=== PATIENT | male | born 1975 | race Caucasian/White ===

== ENCOUNTER 2018-08-03 12:33 | Inpatient (IN) | payer MEDICARE ==
[~2018-08-03] VITALS: Ht 180.3 cm; Wt 102.4 kg
[2018-08-03] MEDS ORDERED: CLON0.2T PO (13:07)
[2018-08-03] MEDS ORDERED: GLIP5TAB10 PO (13:07)
[2018-08-03] MEDS ORDERED: METO25TA35 PO (13:07)
[2018-08-03] MEDS ORDERED: MYCO250C4 PO (13:07)
[2018-08-03] MEDS ORDERED: TACR1CAP4 PO (13:07)
[2018-08-03] MEDS ORDERED: hydrALAzine 20 MG/ML, 1ML ONE (13:18)
[2018-08-03 13:40] LABS: BASOPHILS # (AUTO) 0.02 x10^3/uL (0-0.1); BASOPHILS % (AUTO) 0 % (0-1); EOSINOPHILS # (AUTO) 0.06 x10^3/uL (0-0.4); EOSINOPHILS % (AUTO) 1 % (1-7); LYMPHOCYTES # (AUTO) 1.05 x10^3/uL (1-3.4); LYMPHOCYTES % (AUTO) 9 % (22-44); MD NO; MEAN CORPUSCULAR HEMOGLOBIN 29.3 pg (27.5-34.5); MEAN CORPUSCULAR HGB CONC 33.2 g/dL (33.2-36.2); MEAN CORPUSCULAR VOLUME 88.3 fL (81-97); MEAN PLATELET VOLUME 8.9 fL (7.4-10.4); MONOCYTES # (AUTO) 0.44 x10^3/uL (0.2-0.8); MONOCYTES % (AUTO) 4 % (2-9); NEUTROPHILS # (AUTO) 9.93 x10^3/uL (1.8-6.8); NEUTROPHILS % (AUTO) 86 % (42-75); PLATELET COUNT 232 x10^3/uL (130-400); RED BLOOD COUNT 4.48 x10^6/uL (4.38-5.82); RED CELL DISTRIBUTION WIDTH 13.8 % (9.4-14.8)
[2018-08-03 13:44] LABS: ALBUMIN 2.4 g/dL (3.4-5.0); ANION GAP 19 mmol/L (5-15); CALCIUM 7.8 mg/dL (8.5-10.1); CHLORIDE 104 mmol/L (98-107)
[2018-08-03 13:47] LABS: TROPONIN I 0.028 ng/mL (0.000-0.045)
[2018-08-03] MEDS ORDERED: SODIUM CHLORIDE FLUSH 10ML SYR IVF ONE (14:00)
[2018-08-03] MEDS ORDERED: hydrALAzine 20 MG/ML, 1ML IV ONE ×2 (14:00→14:30)
[2018-08-03] MEDS ORDERED: LORazepam 2 MG/ML, 1ML ONE ×2 (14:09→14:35)
[2018-08-03] MEDS ORDERED: LORazepam 2 MG/ML, 1ML IVPush ONE ×2 (14:30→15:00)
[2018-08-03] MEDS ORDERED: PLEASE ENTER ALLERGIES MC SCH (15:00)
[2018-08-03] MEDS ORDERED: LABETALOL 5MG/ML, 20ML IVPush ONE (15:30)
[2018-08-03] MEDS ORDERED: FUROSEMIDE 40 MG/4 ML ONE (15:47)
[2018-08-03] MEDS ORDERED: LABETALOL 5MG/ML, 20ML ONE (15:47)
[2018-08-03] MEDS ORDERED: FUROSEMIDE 100 MG/10 ML IV ONE (16:00)
[2018-08-03] MEDS: TACROLIMUS 1 MG CAPSULE PO SCH ×2 (16:00→16:30)
[2018-08-03] MEDS ORDERED: LIDOCAINE-MPF 2%, 2ML ONE ×2 (16:08)
[2018-08-03] MEDS ORDERED: NITROGLYCERIN OINT 2%, 1GM TP ONE ×2 (16:18→16:30)
[2018-08-03] MEDS ORDERED: BISACODYL 10 MG SUPP PR PRN (16:30)
[2018-08-03] MEDS ORDERED: POLYETHYLENE GLYCOL 17 GM PACKET PO PRN (16:30)
[2018-08-03] MEDS ORDERED: MICROFIBRILLAR COLLAGEN 1 GM TP ONE (16:56)
[2018-08-03] MEDS ORDERED: ONDANSETRON ODT 4 MG ONE (17:36)
[2018-08-03] MEDS: ONDANSETRON ODT 4 MG PO PRN (17:54)
[2018-08-03 19:42] VITALS: BP 140/84
[2018-08-03] MEDS: OXYcodone IR 5MG TABLET PO PRN (21:38)
[2018-08-03] MEDS: HEPARIN 5,000 UNITS/ML, 1ML SQ SCH (21:39)
[2018-08-04] MEDS: ONDANSETRON ODT 4 MG PO PRN ×3 (02:17→21:25)
[2018-08-04] MEDS: TACROLIMUS 1 MG CAPSULE PO SCH ×3 (04:00→16:29)
[2018-08-04] MEDS: OXYcodone IR 5MG TABLET PO PRN ×3 (04:14→20:19)
[2018-08-04] MEDS: HEPARIN 5,000 UNITS/ML, 1ML SQ SCH ×3 (04:14→20:20)
[2018-08-04 04:53] VITALS: BP 149/99
[2018-08-04 05:15] LABS: BASOPHILS # (AUTO) 0.01 x10^3/uL (0-0.1); BASOPHILS % (AUTO) 0 % (0-1); EOSINOPHILS % (AUTO) 0 % (1-7); LYMPHOCYTES # (AUTO) 0.42 x10^3/uL (1-3.4); LYMPHOCYTES % (AUTO) 6 % (22-44); MD NO; MEAN CORPUSCULAR HEMOGLOBIN 30.2 pg (27.5-34.5); MEAN CORPUSCULAR HGB CONC 33.9 g/dL (33.2-36.2); MEAN CORPUSCULAR VOLUME 89.2 fL (81-97); MEAN PLATELET VOLUME 8.7 fL (7.4-10.4); MONOCYTES # (AUTO) 0.04 x10^3/uL (0.2-0.8); MONOCYTES % (AUTO) 1 % (2-9); NEUTROPHILS % (AUTO) 93 % (42-75); PLATELET COUNT 210 x10^3/uL (130-400); RED BLOOD COUNT 4.27 x10^6/uL (4.38-5.82); RED CELL DISTRIBUTION WIDTH 13.3 % (9.4-14.8)
[2018-08-04 05:16] LABS: CHLORIDE 97 mmol/L (98-107)
[2018-08-04 05:40] LABS: ALANINE AMINOTRANSFERASE 20 U/L (12-78); ALBUMIN 2.5 g/dL (3.4-5.0); ALKALINE PHOSPHATASE 78 U/L (45-117); ANION GAP 20 mmol/L (5-15); BILIRUBIN,TOTAL 0.7 mg/dL (0.2-1.0); CALCIUM 8.3 mg/dL (8.5-10.1); TOTAL PROTEIN 6.9 g/dL (6.4-8.2)
[2018-08-04] MEDS: hydrALAzine 20 MG/ML, 1ML IVPush PRN ×2 (07:37→20:20)
[2018-08-04] MEDS: METOPROLOL TARTRATE 25 MG TABLET PO SCH (08:39)
[2018-08-04] MEDS: SENNA/DOCUSATE TABLET PO SCH (09:11)
[2018-08-04] MEDS: LABETALOL 5MG/ML, 20ML IVPush PRN ×5 (10:26→23:26)
[2018-08-04] MEDS ORDERED: PROMETHAZINE 25 MG/ML, 1ML ONE (12:29)
[2018-08-04] MEDS: PROMETHAZINE 25 MG/ML, 1ML IM PRN (12:31)
[2018-08-04] MEDS: LORazepam 1MG TABLET PO PRN (22:31)
[2018-08-05] VITALS (8 sets, daily range): BP systolic 144–193; BP diastolic 80–115
[2018-08-05] MEDS: hydrALAzine 20 MG/ML, 1ML IVPush PRN ×3 (00:46→21:21)
[2018-08-05] MEDS: OXYcodone IR 5MG TABLET PO PRN ×2 (00:59→17:49)
[2018-08-05] MEDS ORDERED: ALUMINUM/MAG/SIMETHICONE 30 ML UDC PO ONE (01:00)
[2018-08-05] MEDS: LABETALOL 5MG/ML, 20ML IVPush PRN ×2 (02:03→18:55)
[2018-08-05] MEDS: TACROLIMUS 1 MG CAPSULE PO SCH ×2 (04:30→20:00)
[2018-08-05] MEDS: LORazepam 1MG TABLET PO PRN ×2 (05:02→20:01)
[2018-08-05] MEDS: HEPARIN 5,000 UNITS/ML, 1ML SQ SCH ×4 (05:02→23:36)
[2018-08-05 05:39] LABS: ANION GAP 14 mmol/L (5-15); CALCIUM 7.7 mg/dL (8.5-10.1); CHLORIDE 89 mmol/L (98-107)
[2018-08-05] MEDS: INSULIN LISPRO 100 UNITS/ML, PEN SQ-INSULIN SCH ×4 (08:47→20:03)
[2018-08-05] MEDS: METOPROLOL TARTRATE 25 MG TABLET PO SCH (08:48)
[2018-08-05] MEDS: INSULIN GLARGINE 100 UNITS/ML, PEN SQ-INSULIN SCH ×2 (08:48→20:03)
[2018-08-05] MEDS: OMEPRAZOLE 20 MG CAPSULE.DR PO SCH (08:48)
[2018-08-05] MEDS: SENNA/DOCUSATE TABLET PO SCH (08:48)
[2018-08-05] MEDS: PROMETHAZINE 25 MG/ML, 1ML IM PRN (19:48)
[2018-08-05] MEDS: ACETAMINOPHEN 325 MG TABLET PO PRN (20:09)
[2018-08-06] VITALS (14 sets, daily range): BP systolic 151–217; BP diastolic 89–141
[2018-08-06] MEDS: OXYcodone IR 5MG TABLET PO PRN (04:23)
[2018-08-06] MEDS: LORazepam 1MG TABLET PO PRN ×2 (04:23→17:44)
[2018-08-06 05:44] LABS: ANION GAP 13 mmol/L (5-15); CALCIUM 8.3 mg/dL (8.5-10.1); CHLORIDE 92 mmol/L (98-107)
[2018-08-06 08:20] LABS: INTERNATIONAL NORMALIZED RATIO 1.03 (0.93-1.1); PROTHROMBIN TIME 10.7 Seconds (9.6-11.5)
[2018-08-06] MEDS: TACROLIMUS 1 MG CAPSULE PO SCH ×2 (08:30→20:00)
[2018-08-06] MEDS: SENNA/DOCUSATE TABLET PO SCH (08:30)
[2018-08-06] MEDS: OMEPRAZOLE 20 MG CAPSULE.DR PO SCH (08:31)
[2018-08-06] MEDS: METOPROLOL TARTRATE 25 MG TABLET PO SCH (08:31)
[2018-08-06] MEDS: INSULIN LISPRO 100 UNITS/ML, PEN SQ-INSULIN SCH ×4 (10:43→21:00)
[2018-08-06] MEDS: INSULIN GLARGINE 100 UNITS/ML, PEN SQ-INSULIN SCH ×2 (10:46→21:00)
[2018-08-06] MEDS ORDERED: AMLODIPINE 5 MG TABLET ONE (13:04)
[2018-08-06] MEDS: hydrALAzine 20 MG/ML, 1ML IVPush PRN ×2 (13:06→23:41)
[2018-08-06] MEDS: HEPARIN 5,000 UNITS/ML, 1ML SQ SCH ×3 (13:15→21:31)
[2018-08-06] MEDS ORDERED: AMLODIPINE 5 MG TABLET PO SCH (13:30)
[2018-08-06] MEDS: LABETALOL 5MG/ML, 20ML IVPush PRN ×2 (17:44→22:44)
[2018-08-06] MEDS ORDERED: INSULIN GLARGINE 100 UNITS/ML, PEN SQ-INSULIN ONE (21:30)
[2018-08-06] MEDS ORDERED: INSULIN LISPRO 100 UNITS/ML, PEN SQ-INSULIN ONE (21:30)
[2018-08-06] MEDS: AMLODIPINE 5 MG TABLET PO SCH (21:32)
[2018-08-06 22:21] LABS: ANION GAP 16 mmol/L (5-15); CALCIUM 7.9 mg/dL (8.5-10.1); CHLORIDE 86 mmol/L (98-107)
[2018-08-06] MEDS ORDERED: INSULIN GLARGINE 100 UNITS/ML, PEN SQ-INSULIN SCH (23:20)
[2018-08-06] MEDS ORDERED: INSULIN LISPRO 100 UNITS/ML, PEN SQ-INSULIN SCH (23:30)
[2018-08-06] MEDS ORDERED: SODIUM POLYSTYRENE SULFONATE ORAL SUSP PO ONE (23:30)
[2018-08-06 23:33] LABS: ANION GAP 15 mmol/L (5-15); CALCIUM 8.1 mg/dL (8.5-10.1); CHLORIDE 86 mmol/L (98-107)
[2018-08-07] VITALS (10 sets, daily range): BP systolic 149–203; BP diastolic 81–126
[2018-08-07 00:41] LABS: ANION GAP 18 mmol/L (5-15); CHLORIDE 87 mmol/L (98-107)
[2018-08-07] MEDS: LABETALOL 5MG/ML, 20ML IVPush PRN ×3 (01:00→05:34)
[2018-08-07] MEDS: HEPARIN 5,000 UNITS/ML, 1ML SQ SCH ×3 (05:00→23:11)
[2018-08-07] MEDS: INSULIN LISPRO 100 UNITS/ML, PEN SQ-INSULIN SCH ×4 (05:35→21:11)
[2018-08-07 06:48] LABS: HEMOGLOBIN A1C 7.6 % (4.2-6.3)
[2018-08-07] MEDS: hydrALAzine 20 MG/ML, 1ML IVPush PRN (07:58)
[2018-08-07] MEDS: OMEPRAZOLE 20 MG CAPSULE.DR PO SCH (07:58)
[2018-08-07] MEDS: TACROLIMUS 1 MG CAPSULE PO SCH ×2 (08:00→20:00)
[2018-08-07] MEDS: AMLODIPINE 5 MG TABLET PO SCH ×2 (09:18→21:11)
[2018-08-07] MEDS: SENNA/DOCUSATE TABLET PO SCH (09:18)
[2018-08-07] MEDS: METOPROLOL TARTRATE 50 MG TABLET PO SCH ×2 (09:20→21:10)
[2018-08-07] MEDS: INSULIN GLARGINE 100 UNITS/ML, PEN SQ-INSULIN SCH ×2 (09:38→21:12)
[2018-08-07] MEDS ORDERED: INSULIN LISPRO 100 UNITS/ML, PEN SQ-INSULIN SCH (11:00)
[2018-08-08 03:00] VITALS: BP 131/83
[2018-08-08 04:04] LABS: ANION GAP 12 mmol/L (5-15); CALCIUM 7.8 mg/dL (8.5-10.1); CHLORIDE 98 mmol/L (98-107); CREATININE 8.82 mg/dL (0.7-1.3)
[2018-08-08] MEDS: INSULIN LISPRO 100 UNITS/ML, PEN SQ-INSULIN SCH ×4 (07:00→21:00)
[2018-08-08 07:04] VITALS: BP 155/89
[2018-08-08] MEDS: HEPARIN 5,000 UNITS/ML, 1ML SQ SCH ×3 (07:58→22:06)
[2018-08-08] MEDS: INSULIN GLARGINE 100 UNITS/ML, PEN SQ-INSULIN SCH ×2 (07:59→21:25)
[2018-08-08] MEDS: AMLODIPINE 5 MG TABLET PO SCH ×2 (08:00→21:23)
[2018-08-08] MEDS: TACROLIMUS 1 MG CAPSULE PO SCH ×2 (08:00→19:51)
[2018-08-08] MEDS: METOPROLOL TARTRATE 50 MG TABLET PO SCH ×2 (08:01→21:23)
[2018-08-08] MEDS: OMEPRAZOLE 20 MG CAPSULE.DR PO SCH (08:01)
[2018-08-08] MEDS: SENNA/DOCUSATE TABLET PO SCH (08:03)
[2018-08-08 11:26] VITALS: BP 155/103
[2018-08-08] MEDS: hydrALAzine 20 MG/ML, 1ML IVPush PRN (11:52)
[2018-08-08 19:35] VITALS: BP 158/93
[2018-08-08] MEDS: DOXAZOSIN 2MG TABLET PO SCH (21:23)
[2018-08-09] VITALS (8 sets, daily range): BP systolic 121–170; BP diastolic 68–102
[2018-08-09] MEDS: HEPARIN 5,000 UNITS/ML, 1ML SQ SCH ×2 (06:21→16:33)
[2018-08-09] MEDS: INSULIN LISPRO 100 UNITS/ML, PEN SQ-INSULIN SCH ×4 (07:00→21:00)
[2018-08-09] MEDS: AMLODIPINE 5 MG TABLET PO SCH ×2 (08:32→21:22)
[2018-08-09] MEDS: METOPROLOL TARTRATE 50 MG TABLET PO SCH ×2 (08:33→21:15)
[2018-08-09] MEDS: SENNA/DOCUSATE TABLET PO SCH (08:39)
[2018-08-09] MEDS ORDERED: FENTANYL PF 100 MCG/2ML ONE (10:09)
[2018-08-09] MEDS ORDERED: MIDAZOLAM 1 MG/ML, 5ML ONE (10:09)
[2018-08-09] MEDS ORDERED: FLUMAZENIL 0.1 MG/1 ML, 5ML ONE (10:09)
[2018-08-09] MEDS ORDERED: NALOXONE 1 MG/ML, 2ML ONE (10:09)
[2018-08-09] MEDS ORDERED: LIDOCAINE-MPF 2%, 2ML ONE (10:13)
[2018-08-09] MEDS: INSULIN GLARGINE 100 UNITS/ML, PEN SQ-INSULIN SCH ×2 (11:35→21:22)
[2018-08-09] MEDS: TACROLIMUS 1 MG CAPSULE PO SCH ×2 (11:37→20:00)
[2018-08-09] MEDS: DOXAZOSIN 2MG TABLET PO SCH ×2 (11:39→21:15)
[2018-08-09] MEDS: OMEPRAZOLE 20 MG CAPSULE.DR PO SCH (11:39)
[2018-08-09] MEDS: ACETAMINOPHEN 325 MG TABLET PO PRN (21:15)
[2018-08-10 00:27] VITALS: BP 133/74
[2018-08-10] MEDS: HEPARIN 5,000 UNITS/ML, 1ML SQ SCH ×2 (00:56→08:30)
[2018-08-10] MEDS: TACROLIMUS 1 MG CAPSULE PO SCH ×2 (08:00→20:00)
[2018-08-10 08:33] VITALS: BP 164/92
[2018-08-10] MEDS: INSULIN LISPRO 100 UNITS/ML, PEN SQ-INSULIN SCH ×4 (08:41→20:59)
[2018-08-10] MEDS: INSULIN GLARGINE 100 UNITS/ML, PEN SQ-INSULIN SCH ×2 (08:42→20:59)
[2018-08-10] MEDS: SENNA/DOCUSATE TABLET PO SCH (08:45)
[2018-08-10] MEDS: DOXAZOSIN 2MG TABLET PO SCH ×2 (08:46→21:01)
[2018-08-10] MEDS: OMEPRAZOLE 20 MG CAPSULE.DR PO SCH (08:46)
[2018-08-10 12:50] VITALS: BP 155/83
[2018-08-10] MEDS: METOPROLOL TARTRATE 50 MG TABLET PO SCH ×2 (12:53→21:01)
[2018-08-10] MEDS: AMLODIPINE 5 MG TABLET PO SCH ×2 (12:53→21:01)
[2018-08-10] MEDS: ACETAMINOPHEN 325 MG TABLET PO PRN (13:04)
[2018-08-10 18:54] VITALS: BP 146/78
[2018-08-10 21:00] VITALS: BP 149/83
[2018-08-11 00:06] VITALS: BP 128/70
[2018-08-11 05:32] LABS: CHLORIDE 98 mmol/L (98-107)
[2018-08-11 05:39] LABS: ANION GAP 14 mmol/L (5-15); CALCIUM 7.2 mg/dL (8.5-10.1)
[2018-08-11] MEDS: INSULIN LISPRO 100 UNITS/ML, PEN SQ-INSULIN SCH ×2 (07:00→13:18)
[2018-08-11] MEDS: OMEPRAZOLE 20 MG CAPSULE.DR PO SCH (07:57)
[2018-08-11] MEDS: TACROLIMUS 1 MG CAPSULE PO SCH (07:58)
[2018-08-11 08:05] VITALS: BP 131/79
[2018-08-11] MEDS ORDERED: AMLO5TAB7 PO (08:35)
[2018-08-11] MEDS ORDERED: DOXA2TAB9 PO (08:35)
[2018-08-11] MEDS ORDERED: CALC667C PO (08:35)
[2018-08-11] MEDS ORDERED: INSU100I11 SQ-INSULIN (08:35)
[2018-08-11] MEDS ORDERED: OXYC5TAB3 PO (08:35)
[2018-08-11] MEDS ORDERED: METO50TA82 PO (08:35)
[2018-08-11] MEDS ORDERED: HYDR-3343 PO (08:35)
[2018-08-11] MEDS ORDERED: MYCO250C PO (08:35)
[2018-08-11] MEDS ORDERED: OMEP-110 PO (08:35)
[2018-08-11] MEDS ORDERED: LORA-446 PO (08:35)
[2018-08-11] MEDS ORDERED: INSU100I13 SQ-INSULIN (08:35)
[2018-08-11] MEDS ORDERED: CLON0.3T47 PO (08:35)
[2018-08-11] MEDS ORDERED: CALCIUM ACETATE 667 MG CAPSULE PO SCH (09:00)
[2018-08-11] MEDS: SENNA/DOCUSATE TABLET PO SCH (10:27)
[2018-08-11] MEDS: DOXAZOSIN 2MG TABLET PO SCH (10:27)
[2018-08-11] MEDS: METOPROLOL TARTRATE 50 MG TABLET PO SCH (10:28)
[2018-08-11] MEDS: AMLODIPINE 5 MG TABLET PO SCH (10:28)
[2018-08-11] MEDS: INSULIN GLARGINE 100 UNITS/ML, PEN SQ-INSULIN SCH (10:34)
[2018-08-11 15:13] VITALS: BP 130/73
== END 2018-08-11 15:54 | disposition short-term general hospital (02) | DRG 698 ==
LOC: ED 14:15 → EDIP 16:23 → CCU 19:50 → 4WST 08-05 09:39
PROVIDERS: ADMIT Internal Medicine; ATTEND Internal Medicine
PROC: 5A1D70Z Performance of Urinary Filtration, Intermittent, Less than 6 Hours Per Day (ICD-10-PCS; 2018-08-03)
PROC: 02HV33Z Insertion of Infusion Device into Superior Vena Cava, Percutaneous Approach (ICD-10-PCS; 2018-08-03)
PROC: B548ZZA Ultrasonography of Superior Vena Cava, Guidance (ICD-10-PCS; 2018-08-03)
PROC: 5A1D70Z Performance of Urinary Filtration, Intermittent, Less than 6 Hours Per Day (ICD-10-PCS; 2018-08-04)
PROC: 5A1D70Z Performance of Urinary Filtration, Intermittent, Less than 6 Hours Per Day (ICD-10-PCS; 2018-08-05)
PROC: 5A1D70Z Performance of Urinary Filtration, Intermittent, Less than 6 Hours Per Day (ICD-10-PCS; 2018-08-07)
PROC: 0TB33ZX Excision of Right Kidney Pelvis, Percutaneous Approach, Diagnostic (ICD-10-PCS; 2018-08-09)
PROC: 5A1D70Z Performance of Urinary Filtration, Intermittent, Less than 6 Hours Per Day (ICD-10-PCS; principal; 2018-08-10)
DX: T86.11 Kidney transplant rejection (principal); N17.0 Acute kidney failure with tubular necrosis; I50.33 Acute on chronic diastolic (congestive) heart failure; E43 Unspecified severe protein-calorie malnutrition; I13.0 Hypertensive heart and chronic kidney disease with heart failure and stage 1 through stage 4 chronic kidney disease, or unspecified chronic kidney disease; E87.2 Acidosis; E87.1 Hypo-osmolality and hyponatremia; D63.1 Anemia in chronic kidney disease; E11.22 Type 2 diabetes mellitus with diabetic chronic kidney disease; E11.65 Type 2 diabetes mellitus with hyperglycemia; E66.9 Obesity, unspecified; E78.5 Hyperlipidemia, unspecified; E83.51 Hypocalcemia; E87.5 Hyperkalemia; F32.9 Major depressive disorder, single episode, unspecified; K21.9 Gastro-esophageal reflux disease without esophagitis; M19.90 Unspecified osteoarthritis, unspecified site; N18.3 Chronic kidney disease, stage 3 (moderate); Z59.9 Problem related to housing and economic circumstances, unspecified; Z99.2 Dependence on renal dialysis; Z68.31 Body mass index [BMI] 31.0-31.9, adult; Z91.14 Patient's other noncompliance with medication regimen; Z83.3 Family history of diabetes mellitus; Z88.6 Allergy status to analgesic agent
CPT/HCPCS: 36415; 36556; 36600; 50200; 51702; 70450; 71045; 71046; 71250; 76770; 76937; 76942; 77001; 80048; 80053; 80197; 82040; 82803; 82947; 82962; 83036; 83735; 83880; 84100; 84484; 85025; 85610; 86480; 86704; 86706; 87081; 87340; 88300; 88305; 88313; 88346; 88348; 88350; 93005; 96374; 96375; 96376; 99156; 99157; 99291; C1894; G0378; J1644; J1940; J2250; J2550; J2930; J3010; J3490; J7507; J7517; Q0162; C1751; J0360; J1642; J1815; J2060; J2310; J7050